=== PATIENT | female | born 1975 ===

== ENCOUNTER → 2017-05-01 | Outpatient (CLI) | payer OTHER ==
[~2017-05-01] MED LIST: PROCARDIA90 MG/BLIS; VALTREX1000 MG PO
== END | disposition home or self-care (01) ==
LOC: LAB 08:56
DX: R10.2 Pelvic and perineal pain (principal)

== ENCOUNTER → 2017-05-01 | Outpatient (CLI) | payer OTHER | END | disposition home or self-care (01) | LOC: RAD 09:07 | DX: R05 Cough (principal) ==

== ENCOUNTER 2017-05-05 12:30 | Inpatient (IN) | payer OTHER ==
[~2017-05-05] VITALS: Ht 162.6 cm; Wt 86.2 kg
[~2017-05-05 12:30] MED LIST changes: -VALTREX1000 MG PO
[2017-05-05] MEDS ORDERED: VALTREX1000 MG PO (15:52)
== END 2017-05-10 11:07 | disposition home or self-care (01) | DRG 743 ==
LOC: ADM 12:30 → EDSTATUS 12:30 → O/R 05-07 06:24 → OB/GYN 05-07 06:24 → SURG 05-07 10:30 → OB/GYN 05-07 11:42 → SURG 05-07 12:30 → OB/GYN 05-07 14:38
PROVIDERS: Obstetrics & Gynecology
PROC: 0UT70ZZ Resection of Bilateral Fallopian Tubes, Open Approach (ICD-10-PCS; 2017-05-07)
PROC: 0UT90ZZ Resection of Uterus, Open Approach (ICD-10-PCS; principal; 2017-05-07 10:30)
DX: D25.1 Intramural leiomyoma of uterus (principal); N72 Inflammatory disease of cervix uteri; N73.6 Female pelvic peritoneal adhesions (postinfective); N80.0 Endometriosis of uterus